=== PATIENT | male | born 1985 | race Two or more races ===

== ENCOUNTER 2023-09-10 10:24 | Emergency (ER) | payer OTHER ==
[~2023-09-10] VITALS: Ht 185.4 cm; Wt 90.7 kg
[2023-09-10] MEDS ORDERED: ONDA4TAB5 PO (11:03)
[2023-09-10 11:15] VITALS: BP 141/85; TEMP 97.8; O2SAT 98
[2023-09-10] MEDS ORDERED: ONDANSETRON 4 MG TAB.RAPDIS SL ONE (11:30)
== END 2023-09-10 11:16 ==
LOC: ER 10:24
DX: F11.23 Opioid dependence with withdrawal (principal); R11.0 Nausea; F17.200 Nicotine dependence, unspecified, uncomplicated; Z79.899 Other long term (current) drug therapy